=== PATIENT | male | born 1970 | race African-American/Black ===

== ENCOUNTER 2017-09-11 21:58 | Emergency (ER) | payer BC ==
--- NOTE | 2017-09-11 22:21 | RAD ---
RADIOGRAPH CHEST 2 VIEWS: 09/11/17 HISTORY: 46-year-old male with acute chest pain. FINDINGS: There is no air space density, pulmonary edema, pleural effusion, pneumothorax, or cardiomegaly. IMPRESSION: No acute cardiopulmonary findings. dylan [] POS: YANRIA
[2017-09-11 22:30] LABS: #Lymphocytes 0.8 thou/uL (1.20-3.40); #Monocytes 0.3 thou/uL (0.11-0.59); #Neutrophils 10.8 thou/uL (1.40-6.50); %Basophils 0.2 % (0.0-1.0); %Eosinophils 0.1 % (0.0-10.0); %Lymphocytes 6.9 % (21.0-51.0); %Monocytes 2.8 % (0.0-10.0); %Neutrophils 89.9 % (42.0-75.0); Hemoglobin 16.1 g/dL (14.0-18.0); Mean Corpuscular HGB CONC 35.2 g/dL (32.0-36.0); Mean Corpuscular Hemoglobin 32.4 pg (27.0-31.0); Mean Corpuscular Volume 91.8 fL (78.0-98.0); Mean Platelet Volume 6.1 fL (7.4-10.4); Platelet Count 271 thou/uL (130-400); RBC Distribution Width 11.9 % (11.5-14.5); Red Blood Cell (RBC) Count 4.97 mill/uL (4.70-6.10)
[2017-09-11 22:51] LABS: ALT (SGPT) 27 U/L (8-55); AST (SGOT) 25 U/L (5-34); Albumin 4.5 g/dL (3.5-5.0); Alkaline Phosphatase 74 U/L (40-150); Anion Gap 13 mmol/L (10-20); BUN (Urea Nitrogen) 10 mg/dL (8.9-20.6); Bilirubin, Total 0.5 mg/dL (0.2-1.2); Calc. Creatinine Clearance 0 mL/min (70-130); Calcium 9.6 mg/dL (7.8-10.44); Carbon Dioxide 25 mmol/L (22-29); Chloride 104 mmol/L (98-107); Estimated GFR-MDRD Greater than 90; Globulin 3.9 g/dL (2.4-3.5); Glucose 135 mg/dL (70-105); Potassium 3.6 mmol/L (3.5-5.1); Protein, Total 8.4 g/dL (6.0-8.3); Sodium 138 mmol/L (136-145)
[2017-09-11 22:55] LABS: CKMB 1.5 ng/mL (0-6.6); Troponin I Less than 0.010 ng/mL (< 0.028)
[2017-09-12] MEDS ORDERED: Milk Of Magnesia 30 ML UDCUP ONE (00:11)
[2017-09-12] MEDS ORDERED: Lidocaine Viscous Sol 2% 15 ml UD Cup ONE (00:11)
[2017-09-12] MEDS ORDERED: Simethicone Chewable 80 MG TAB PO SCH (00:30)
[2017-09-12] MEDS ORDERED: Nitroglycerin 0.4 MG TAB (25 Tab Bottle) ONE ×2 (02:00→02:04)
[2017-09-12] MEDS ORDERED: Nitroglycerin 2% Ointment 1 INCH/1 GM Packet ONE (02:00)
[2017-09-12] MEDS ORDERED: Pantoprazole 40 MG VIAL ONE (02:01)
[2017-09-12] MEDS ORDERED: Ondansetron ODT 4 MG TAB ONE (02:24)
[2017-09-12] MEDS ORDERED: cloNIDine 0.1 MG TAB ONE (03:16)
[2017-09-12] MEDS ORDERED: Lisinopril 10 MG TAB ONE (03:25)
--- NOTE | 2017-09-12 08:09 | CT ---
FINAL REPORT EMERGENT AFTER HOURS CTA OF THE CHEST: TECHNIQUE: Multiple contiguous axial images were obtained in a CTA of the chest with contrast per pulmonary embo lism protocol. Three-D oblique MIP reformats and direct coronal reformats were performed FINDINGS/IMPRESSION: I agree with the findings and impression given in the preliminary report per [facility] physician. 1. No evidence of pulmonary thromboembolism. 2. Fatty liver. 3. Right renal cyst. 4. Hiatal hernia with dilated distal esophagus. POS: RACQUEL
[2017-09-12] MEDS ORDERED: ISOVUE-370 76%-LOCM 1 ML ONE (09:39)
== END 2017-09-12 04:40 | disposition home or self-care (01) ==
LOC: ERS 21:58
DX: K21.9 Gastro-esophageal reflux disease without esophagitis (principal); I10 Essential (primary) hypertension; Z79.899 Other long term (current) drug therapy
CPT/HCPCS: 36415; 71046; 71275; 80053; 82553; 83690; 84484; 85025; 85379; 93005; 96374; C9113; Q0162